=== PATIENT | female | born 1990 | race African-American/Black ===

== ENCOUNTER 2016-10-10 02:32 | Emergency (ER) | payer BC ==
[2016-10-10 02:58] LABS: BASOPHILS 0.4 %; BASOPHILS ABSOLUTE 0.04 10/3/uL (0.0-0.16); EOSINOPHILS 1.4 %; EOSINOPHILS ABSOLUTE 0.15 10/3/uL (0.0-0.53); ER CBC TAT 0 Hrs 14 Mins; HEMATOCRIT 39.9 % (36.0-48.0); IMMATURE GRANULOCYTES 0.3 %; IMMATURE GRANULOCYTES ABSOLUTE 0.03 10/3/uL (0.0-0.11); LYMPHOCYTES 29.6 %; MEAN CORPUSCULAR HEMOGLOB 25.6 pg (26.0-34.0); MEAN CORPUSCULAR VOLUME 78.7 fL (80-100); MEAN PLATELET VOLUME 8.8 fL (9.2-13.0); MONOCYTES 4.3 %; MONOCYTES ABSOLUTE 0.45 10/3/uL (0.21-1.20); NEUTROPHILS ABSOLUTE 6.72 10/3/uL (2.02-8.40); PLATELET COUNT 349 10/3/uL (150-400); RBC DISTRIBUTION WIDTH 14.3 % (12.0-16.0); RED CELL COUNT 5.07 10/6/uL (4.0-5.6); WHITE BLOOD CELLS 10.5 10/3/uL (4.5-10.5)
[2016-10-10 02:59] LABS: MANUAL DIFF NO %; MEAN CORPUS HGB CONC 32.6 g/dL (32.0-36.0)
[2016-10-10 03:03] LABS: A/G RATIO 0.8 (0.7-1.9); ALBUMIN 3.4 G/DL (3.5-5.0); ALKALINE PHOSPHATASE 67 U/L (45-117); CALCIUM, SERUM 8.5 MG/DL (8.5-10.4); CHLORIDE, SERUM 103 MMOL/L (96-112); CO2 (CARBON DIOXIDE) 25 MMOL/L (24-34); CREATININE 0.81 MG/DL (0.55-1.02); GFR AFRICAN AMERICAN 117 ML/MIN (>=60); GFR NON AFRICAN AMERICAN 101 ML/MIN (>=60); GLOBULIN 4.4 G/DL (2.5-4.1); POTASSIUM, SERUM 3.6 MMOL/L (3.5-5.3); SGOT(AST) 14 U/L (5-40); SGPT(ALT) 24 U/L (5-65); SODIUM, SERUM 140 MMOL/L (135-148); TOTAL BILIRUBIN 0.2 MG/DL (0-1.2); TOTAL PROTEIN 7.8 G/DL (6.0-8.5)
[2016-10-10 03:14] LABS: BUN (BLOOD UREA NITROGEN) 13 MG/DL (6-23); GLUCOSE, SERUM 137 MG/DL (60-99)
[2016-10-10 04:03] LABS: ASCORBIC ACID (UR NOT ORDER) NEG (NEG); BILIRUBIN, URINE NEGATIVE (NEG); ER URINALYSIS TAT 0 Hrs 22 Mins; KETONE, URINE TRACE MG/DL (NEG); LEUKOCYTE ESTERASE(NOT OR NEG (NEG); NITRITE (URINE) NEG (NEG); WBC (NOT ORDERED) (RFLEX) 4 (0-5)
[2016-10-10 04:04] LABS: AMPHETAMINES (NOT ORD) NEG (NEG); BARBITURATES (NOT ORDERED NEG (NEG); BENZODIAZEPINES (NOT ORD) NEG (NEG); CANNABINOIDS (THC) NEG (NEG); COCAINE (NOT ORDERED) NEG (NEG); OPIATES NEG (NEG); PHENCYCLIDINE(PCP) NEG (NEG); TRICYCLICS NEG (NEG)
[2016-10-10] MEDS ORDERED: SPRINTEC PO (09:30)
[2016-10-10] MEDS ORDERED: FLONASE NAS (09:30)
[2016-10-10] MEDS ORDERED: SINGULAIR1 PO (09:30)
[2016-10-10] MEDS ORDERED: ZYRTEC ALLGY10 MG PO (09:30)
[2016-10-10] MEDS ORDERED: ADVIL PO (09:31)
== END 2016-10-10 04:58 | disposition home or self-care (01) ==
LOC: ER 02:32
PROVIDERS: Emergency Medicine
DX: R55 Syncope and collapse (principal)
CPT/HCPCS: 70450; 80053; 80305; 81001; 84703; 85025; 99285

== ENCOUNTER 2016-10-10 07:55 | Inpatient (IN) | payer BC ==
--- NOTE | ~2016-10-10 | EEG ---
Electroencephalogram [id number] [place]. [address] NAME: BEHZDA BARAKAT : 89 STATUS : DIS IN PAT#: [id number] AGE: 26 ADM/REG DATE : 10/10/16 MR#: [id number] REPORT SERV DATE: 10/16/16 DICTATED BY: NAVIN TROTTER DATE: 10/16/16 REPORT STATUS : Draft TRANSCRIBED BY: MODYifan DATE: 10/16/16 ELECTROENCEPHALOGRAPHY REPORT. REQUESTING PHYSICIAN: Dr. Green. INTERPRETING PHYSICIAN: Navin Trotter MD. AGE: 26. REASON FOR EEG: Seizure-like episode. 23 surface electrodes, 10-20 international placement was used. The patient was noted to be awake, drowsy, and asleep. Video recording was utilized. Photic stimulation and hyperventilation was performed. This EEG showed no evidence of paroxysmal or epileptiform activity. Large amount of EKG artifact was noted. The patient's air sampling and monitoring shows sinus rhythm at rate of approximately 86 beats per minute. Stage 1 and 2 sleep were recorded. Bilaterally synchronous sleep spindles were seen during sleep. No paroxysmal or epileptiform activity was seen during this study. The background activity was 9 to 10 cycles per second located in posterior head regions. IMPRESSION: THIS IS A NORMAL AWAKE DROWSY AND ASLEEP EEG. CLINICAL CORRELATION IS RECOMMENDED. DEBRA/KRAIG Navin Trotter MD / [id number] CC: Kait Suarez M.D.
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
--- NOTE | ~2016-10-10 | DS ---
Discharge Summary [facility] [address] [place]. [address] NAME: BEHZAD BARAKAT : 89 STATUS : DIS Rhina PAT#: [id number] AGE: 26 ADM/REG DATE : 10/10/16 MR#: [id number] REPORT SERV DATE: 10/12/16 DICTATED BY: BANG ADAME DATE: 10/12/16 REPORT STATUS : Draft TRANSCRIBED BY: MODL DATE: 10/12/16 ADMISSION DATE: 10/10/2016 DISCHARGE DATE: 10/12/2016 REASON FOR ADMISSION: This is a 26-year-old female, who had onset of seizure night before admission. Lives with her aunt, aunt witnessed the seizure, said lasted approximately 15 minutes and resolved. While in the emergency room, the patient was evaluated and had CT of the brain which was negative for any acute findings and then was sent home. The patient took a shower and went to bed and at 6 a.m., the patient's aunt went by her room and saw her having another seizure and in this episode the patient was "spinning." She did not have tonic-clonic activity, but exhibited strange behavior which last about 15 minutes. During this time, the patient's aunt called 911 and she was brought to the emergency room again. She was evaluated again in the emergency room and during the evaluation, her head turned left and she began having tonic-clonic activity. This seizure activity in the emergency room lasted approximately 15 minutes and after the seizure event, the patient was postictal. Also the patient bit the left side of her tongue during the seizure event. She was admitted for new onset seizures. DISCHARGE DIAGNOSES: 1. New onset seizures. 2. Pituitary cyst. 3. 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 HOSPITAL COURSE: The patient was started on IV Keppra and had a CT scan of the brain performed which would show negative CT. She would have an MRI of the brain as well which would show normal pre and post-contrast MRI of the brain. Findings do include two small cysts within pituitary gland with no mass effect consistent with small epithelial cyst. These are not likely clinically important. Small AVM in the subcutaneous fat at the right vertex of the scalp. She would also have an MRV of the brain, which impression was normal magnetic resonance venogram exam of the head. The patient would be transitioned over to oral Keppra and would have no further seizure activity, tolerating the Keppra well. Instructions were given to her of no driving for six months and prescription was given to her for Keppra. DISCHARGE CONDITION: Stable. DISCHARGE MEDICATIONS: 1. Zyrtec 10 mg p.o. daily. 2. Singulair 10 mg p.o. daily. 3. Sprintec 1 tablet p.o. daily. 4. Fluticasone nasal spray, 1 spray nasally daily. 5. Keppra 1000 mg p.o. b.i.d. DISCHARGE PLAN: The patient was discharged home. Follow up with [facility] in two-three weeks and no driving until seizure-free for six months and the patient was given work excuse for both hospital stay and the next two-three weeks until Discharge Summary [address] [place]. [address] NAME: BEHZAD BARAKAT : 89 STATUS : DIS Rhina PAT#: [id number] AGE: 26 ADM/REG DATE : 10/10/16 MR#: [id number] REPORT SERV DATE: 10/12/16 DICTATED BY: BANG ADAME DATE: 10/12/16 REPORT STATUS : Draft TRANSCRIBED BY: KRAIG DATE: 10/12/16 followup with Neurology. FARTUN/KRAIG Bang Adame APN / [id number] CC: Kait Suarez M.D. [facility], [facility]
[2016-10-10] MEDS ORDERED: FLONASE NAS (09:30)
[2016-10-10] MEDS ORDERED: SINGULAIR1 PO (09:30)
[2016-10-10] MEDS ORDERED: ZYRTEC ALLGY10 MG PO (09:30)
[2016-10-10] MEDS ORDERED: SPRINTEC PO (09:30)
[2016-10-10] MEDS ORDERED: ADVIL PO (09:31)
[2016-10-10 09:59] LABS: PHOSPHORUS, SERUM 1.4 MG/DL (2.5-4.5)
[2016-10-10 14:10] LABS: T4 (THYROXINE) TOTAL 13.7 MCG/DL (4.5-12.0); ULTRASENSITIVE TSH 1.49 MCIU/ML (0.358-3.740)
[2016-10-11 06:16] LABS: CALCIUM, SERUM 7.9 MG/DL (8.5-10.4); CHLORIDE, SERUM 107 MMOL/L (96-112); CHOL/HDL RATIO(NOT ORDER) 2.2 (0-5); CHOLESTEROL 173 MG/DL (< 200); CO2 (CARBON DIOXIDE) 23 MMOL/L (24-34); CREATININE 0.62 MG/DL (0.55-1.02); GFR AFRICAN AMERICAN 144 ML/MIN (>=60); GFR NON AFRICAN AMERICAN 124 ML/MIN (>=60); HDL CHOLESTEROL 78 MG/DL (> 49); LDL CHOLESTEROL 74 MG/DL (< 130); NON-HDL CHOLESTEROL 95 MG/DL (< 160); POTASSIUM, SERUM 3.2 MMOL/L (3.5-5.3); SODIUM, SERUM 143 MMOL/L (135-148); TRIGLYCERIDE 109 MG/DL (< 150)
[2016-10-11 06:20] LABS: BUN (BLOOD UREA NITROGEN) 7 MG/DL (6-23); CPK 474 U/L (0-200); FOLATE 14.2 NG/ML (>5.2); FOLLICLE STIMULATING HORMONE 5.7 MIU/ML; GLUCOSE, SERUM 94 MG/DL (60-99); PHOSPHORUS, SERUM 3.4 MG/DL (2.5-4.5); PROLACTIN 32.3 NG/ML
[2016-10-11 08:00] LABS: GLYCOHEMOGLOBIN (HbA1c) 5.3 % (4.7-6.1)
[2016-10-12] MEDS ORDERED: KEPPRA1000 MG PO (16:04)
== END 2016-10-12 17:14 | disposition home or self-care (01) | DRG 101 ==
LOC: ER 07:55 → CDU1 11:01 → CDU2 12:22
PROVIDERS: Emergency Medicine; Nurse Practitioner
DX: R56.9 Unspecified convulsions (principal); Z68.41 Body mass index [BMI] 40.0-44.9, adult; I10 Essential (primary) hypertension; E66.9 Obesity, unspecified; J30.9 Allergic rhinitis, unspecified; E03.9 Hypothyroidism, unspecified; E78.00 Pure hypercholesterolemia, unspecified; E83.39 Other disorders of phosphorus metabolism; Z72.820 Sleep deprivation; Z82.49 Family history of ischemic heart disease and other diseases of the circulatory system; Z83.3 Family history of diabetes mellitus; R55 Syncope and collapse
CPT/HCPCS: 70450; 70544; 70553; 80048; 80053; 80061; 80305; 81001; 82140; 82533; 82550; 82607; 82746; 82962; 83001; 83002; 83003; 83036; 83735; 84100; 84132; 84146; 84436; 84443; 84703; 85025; 95819; 96365; 96372; 96375; 96376; 99285; A9270-GY; A9577; G0378; J1953; J2405; J3411